=== PATIENT | male | born 1955 | race Caucasian/White ===

== ENCOUNTER → 2016-03-13 | Day surgery (SDC) | payer BC ==
[~2016-03-13] MED LIST: ACETAMINOPHEN 1000 MG/100 ML VIAL IV ONE; BUPIVACAINE LIPOSOME PF 1.3% 20 ML VIAL ONE; KETOROLAC TROMETHAMINE 30 MG/ML (IVP) VIAL IV PUSH ONE; LACTATED RINGER'S 1000 ML INJ 1,000 ML ONE; MIDAZOLAM HCL 2 MG/2 ML VIAL ONE; MORPHINE SULFATE 4 MG/ML INJ ONE; ONDANSETRON HCL 4 MG/2 ML VIAL IV PUSH ONE; PROPOFOL 200 MG/20 ML AMP IV ONE; ceFAZolin 2 GM PREMIX 50 ML ONE
--- NOTE | 2016-03-18 07:19 | MP ---
cc: KANDACE HARRIS M.D. DATE OF SURGERY March 13, 2016 PREOPERATIVE DIAGNOSIS Left inguinal hernia. POSTOPERATIVE DIAGNOSIS Left inguinal hernia. PROCEDURE Repair of left inguinal hernia with ProGrip mesh. SURGEON MD Vicente ANESTHESIA General. OPERATIVE FINDINGS The patient was found to have a very large indirect hernia which had obliterated the internal ring and attenuated a portion of the inguinal floor. There was no evidence of incarcerated viscera. No other abnormalities were noted. OPERATIVE PROCEDURE The patient was brought to the operating room and after satisfactory general anesthesia had been obtained, the abdomen was prepped and draped in the usual sterile fashion. Exparel was used to infiltrate the skin for local anesthesia. A transverse left inguinal incision was made, carried down sharply through the subcutaneous tissue, with the cautery being used for hemostasis. The incision was deepened in the external oblique fascia which was opened in the direction of its fibers down to and through the external ring. The underside of the fascia was cleaned. The spermatic cord was dissected free and then surrounded with a [place] drain. The indirect hernia sac was quite large and grossly adherent to all the surrounding tissue as noted above. It was dissected free with the cautery with care being taken to preserve the cord structures. Once the hernia sac had been completely dissected free, it was circumferentially scored at its base and then reduced within the properitoneal space without problem. The inguinal floor was then reconstructed by bringing the internal oblique to the shelving edge of the inguinal ligament using interrupted 0 Vicryl sutures. The internal ring was reconstructed in similar fashion. A piece of ProGrip mesh was cut to the appropriate shape and then secured anterior to the repair by pushing its posterior Vicryl hooks into the surrounding tissue. Once the mesh had been seen to cover the entire repair including lateral to the internal ring, hemostasis was checked for and found to be satisfactory. A single suture of Prolene was used to affix the mesh to the pubis. The area was again checked for hemostasis which was found to be satisfactory. Further Exparel was infiltrated in the surrounding tissues. The external oblique fascia was closed with a running 3-0 Vicryl suture after returning the testicle to its normal location in the scrotum. The subcutaneous tissue was closed with interrupted 3-0 Vicryl suture and the skin closed with interrupted 4-0 PDS subcuticular stitch. Steri-Strips were applied and the patient was then taken from the operating room in satisfactory condition, having tolerated the procedure without problem. Estimated blood loss was less than 10 mL. The instrument, sponge and needle counts were reported as being correct x 2 at the end of the procedure. MD ESTELLA Bailey/SSB /1:05 PM /7:00 AM
== END | disposition home or self-care (01) ==
LOC: ESDC 08:55
PROVIDERS: ATTEND Surgery
DX: K40.90 Unilateral inguinal hernia, without obstruction or gangrene, not specified as recurrent (principal)
CPT/HCPCS: 00830; 49505; C1781; C9290; J0131; J0690; J1885; J2250; J2270; J2405; J3010; J7120